=== PATIENT | male | born 1985 | race Caucasian/White ===

== ENCOUNTER 2018-10-30 19:20 | Emergency (ER) | payer OTHER ==
[~2018-10-30] VITALS: Ht 172.7 cm; Wt 65.8 kg
[~2018-10-30 19:20] MED LIST: BENTYL 10 MG CA10 M1 PO; CIPRO250 M1 PO; CIPRO500 MG PO; FLAGYL500 MG PO; MACROBID 100 M100 M1 PO; ONDANSETRON HCL4 M2 PO; PYRIDIUM200 MG PO
[2018-10-30 19:40] LABS: URINE BILIRUBIN NEGATIVE (Negative); URINE BLOOD NEGATIVE (Negative); URINE CLARITY CLEAR; URINE COLOR YELLOW; URINE GLUCOSE-RANDOM NEGATIVE (Negative); URINE KETONES NEGATIVE (Negative); URINE LEUKOCYTES-REFLEX NEGATIVE (Negative); URINE NITRITE-REFLEX NEGATIVE (Negative); URINE PROTEIN NEGATIVE (Negative); URINE SPECIFIC GRAVITY 1.015 (1.005-1.030); URINE UROBILINOGEN 0.2 E.U./dl (0.2-1.0)
[2018-10-30 20:17] VITALS: BP 114/77
== END 2018-10-30 20:17 | disposition home or self-care (01) ==
LOC: M.ERS 19:20
PROVIDERS: Nurse Practitioner Family
DX: R30.0 Dysuria (principal); F17.210 Nicotine dependence, cigarettes, uncomplicated

== ENCOUNTER 2019-03-20 22:06 | Emergency (ER) | payer OTHER ==
[~2019-03-20] VITALS: Ht 172.7 cm; Wt 63.5 kg
[2019-03-20] MEDS ORDERED: ULTRAM 50MG TAB50 MG PO (22:45)
[2019-03-20] MEDS ORDERED: BACTRIM DS TAB1 EACH PO (22:45)
[2019-03-20] MEDS ORDERED: KEFLEX500 M1 PO (22:45)
[2019-03-20 23:04] VITALS: BP 123/85
== END 2019-03-20 23:06 | disposition home or self-care (01) ==
LOC: M.ERS 22:06
DX: L03.116 Cellulitis of left lower limb (principal); F17.210 Nicotine dependence, cigarettes, uncomplicated